=== PATIENT | male | born 1965 | race Caucasian/White ===

== ENCOUNTER 2017-12-28 09:30 | Emergency (ER) | payer OTHER ==
[2017-12-28 11:26] VITALS: BP 149/78
--- NOTE | 2017-12-28 11:34 | UC ---
FLU HPI - HPI Summary HPI Summary: 52 y/o male with no PMH, quit TOB 2004 with cough- non-productive, body aches, low grade fever 99.7, crackles in chest at night, sypmtoms worse at night. Denies SOB during day, + at night, daughters, grandchildren had flu. meds- omprazole. presents with . no N/V, throat, ear pain - History of Current Complaint Chief Complaint: UCRespiratory Stated Complaint: FLU SX Time Seen by Provider: 12/28/17 11:19 Hx Obtained From: Patient Onset/Duration: Gradual Onset, Lasting Days Severity Currently: Moderate Severity Initially: Moderate Pain Intensity: 0 Pain Scale Used: 0-10 Numeric - Allergy/Home Medications Allergies/Adverse Reactions: Allergies Allergy/AdvReac Type Severity Reaction Status Date / Time No Known Allergies Allergy Verified 05/14/15 15:57 Home Medications: Home Medications Dm/Acetaminophen/Doxylamine [Night Cold-Flu Relief Liq Gel] 1 each PO 12/28/17 [ History] PMH/Surg Hx/FS Hx/Imm Hx Previously Healthy: Yes - GERD - Surgical History Surgical History: Yes Surgery Procedure, Year, and Place: PT REPORTS SURGERY TO LEFT LOWER LEG. STATES HAPPENED WHEN CHILD-DOESN'T KNOW WHAT HAPPENED - Family History Known Family History: Positive: Hypertension, Diabetes - Social History Alcohol Use: Rare Substance Use Type: None Smoking Status (MU): Former Smoker Type: Cigarettes When Did the Patient Quit Smoking/Using Tobacco: 2004 Household Exposure Type: Cigarettes Review of Systems Constitutional: Fever, Chills, Fatigue Respiratory: Shortness Of Breath - at night, Cough Is Patient Immunocompromised?: No All Other Systems Reviewed And Are Negative: Yes Physical Exam Triage Information Reviewed: Yes Appearance: No Pain Distress, Well-Nourished, Ill-Appearing - mild Vital Signs: Initial Vital Signs Temp 98 F 12/28/17 11:21 Pulse 55 12/28/17 11:21 Resp 20 12/28/17 11:21 BP 149/78 12/28/17 11:21 Pulse Ox 97 12/28/17 11:21 Vital Signs Reviewed: Yes Eyes: Positive: Conjunctiva Clear ENT: Positive: Pharynx normal, TMs normal, Uvula midline. Negative: Pharyngeal erythema, Nasal congestion, TM bulging, TM dull, TM red, Tonsillar swelling, Tonsillar exudate, Hoarse voice, Dental tenderness, Sinus tenderness Neck exam: Normal Neck: Positive: Supple, Nontender, No Lymphadenopathy Respiratory: Positive: Chest non-tender, Normal breath sounds, No respiratory distress, No accessory muscle use, Crackles - RUL, Wheezing - RUL, Expiration - crackles RUL Cardiovascular: Positive: RRR, No Murmur, Pulses Normal Abdomen Description: Positive: Nontender, No Organomegaly, Soft, Bruit. Negative: CVA Tenderness (R), CVA Tenderness (L) Neurological Exam: Normal Psychological Exam: Normal Skin Exam: Normal - multiple tattos Flu Course/Dx - Course Course Of Treatment: rapid flu- + inf B. CXR- neg. symptoms x 5 days, no tamiflu, conservative treatments - Differential Dx/Diagnosis Differential Diagnosis/HQI/PQRI: Influenza Provider Diagnoses: influenza B Discharge - Discharge Plan Condition: Fair Disposition: HOME Prescriptions: Dextromethorphan/Benzocaine [Cepacol Sorethroat-Cough Homa] 1 each PO Q4H PRN # 40 lozenge PRN Reason: cough Patient Education Materials: Influenza (DC) Referrals: Jason Bartholomew MD [Primary Care Provider] - Additional Instructions: - INcrease fluid intake - REturn to ER with fever > 104, neck pain, headache not relieved by tylenol/ motrin - MOtrin/ tylenol/ cough medication as needed for symptoms. - Follow up with primary doctor if no improvement within 3-4 days - Avoid contact with women, chemotherapy patients, children.
--- NOTE | 2017-12-28 11:52 | RAD ---
HISTORY: Wheezing, cough COMPARISONS: None VIEWS: 4: Frontal dual-energy and lateral views of the chest. FINDINGS: CARDIOMEDIASTINAL SILHOUETTE: The cardiomediastinal silhouette is normal. RADHA: The radha are normal. PLEURA: The costophrenic angles are sharp. No pleural abnormalities are noted. LUNG PARENCHYMA: The lungs are clear. ABDOMEN: The upper abdomen is clear. There is no subphrenic gas. BONES AND SOFT TISSUES: No bone or soft tissue abnormalities are noted. OTHER: None. IMPRESSION: NO ACTIVE CARDIOPULMONARY DISEASE.
== END 2017-12-28 12:28 | disposition home or self-care (01) ==
LOC: UCCORT 09:30
DX: J10.1 Influenza due to other identified influenza virus with other respiratory manifestations (principal); Z20.828 Contact with and (suspected) exposure to other viral communicable diseases; Z87.891 Personal history of nicotine dependence
CPT/HCPCS: 71046; 87502; 99212; G0463

== ENCOUNTER 2019-02-24 10:44 | Emergency (ER) | payer OTHER ==
[2019-02-24 11:12] VITALS: BP 157/90
[2019-02-24 11:40] LABS: Influenza A Molecular POSITIVE (Negative)
--- NOTE | 2019-02-24 12:01 | UC ---
FLU HPI - HPI Summary HPI Summary: 53 y/o male presents to the urgent care c/o nonproductive cough, bodyache, and fever x2 days. cough worse last night. taking robitussin and nyquil prn w/ some cough relief. - History of Current Complaint Chief Complaint: UCRespiratory Stated Complaint: COUGH Time Seen by Provider: 02/24/19 11:50 Hx Obtained From: Patient Onset/Duration: Gradual Onset, Lasting Days - 2 days, Still Present, Worse Since - today Severity Currently: Mild Severity Initially: Mild Pain Intensity: 5 Pain Scale Used: 0-10 Numeric Associated Signs & Symptoms: Positive: Fever, Myalgia, Cough - dry, Sore Throat - mild, Nasal Congestion - clear, Headache, Diarrhea - mild - Risk Factors Influenza Risk Factors: Negative - Allergy/Home Medications Allergies/Adverse Reactions: Allergies Allergy/AdvReac Type Severity Reaction Status Date / Time No Known Allergies Allergy Verified 02/24/19 11:08 PMH/Surg Hx/FS Hx/Imm Hx Previously Healthy: Yes - Pt denies PMHX - Surgical History Surgical History: Yes Surgery Procedure, Year, and Place: PT REPORTS SURGERY TO LEFT LOWER LEG. STATES HAPPENED WHEN CHILD-DOESN'T KNOW WHAT HAPPENED - Family History Known Family History: Positive: Hypertension, Diabetes - Social History Occupation: Unemployed Lives: With Family Alcohol Use: Rare Substance Use Type: None Smoking Status (MU): Former Smoker Type: Cigarettes When Did the Patient Quit Smoking/Using Tobacco: 2004 Household Exposure Type: Cigarettes Review of Systems All Other Systems Reviewed And Are Negative: Yes Constitutional: Positive: Fever - low grade fever at home, Chills, Fatigue, Other - body ahces Skin: Positive: Negative Eyes: Positive: Negative ENT: Positive: Sore Throat - mild, Nasal Discharge - clear, Sinus Congestion, Sinus Pain/Tenderness Respiratory: Positive: Cough - dry Cardiovascular: Positive: Negative Gastrointestinal: Positive: Diarrhea - mild Genitourinary: Positive: Negative Motor: Positive: Negative Neurovascular: Positive: Negative Musculoskeletal: Positive: Myalgia Neurological: Positive: Headache Psychological: Positive: Negative Is Patient Immunocompromised?: No Physical Exam - Summary Physical Exam Summary: VITAL SIGNS: Reviewed. GENERAL: Patient is a well developed and nourished obese male who is sitting comfortable in the examining table. Patient is not in any acute respiratory distress. HEAD AND FACE: No signs of trauma. No ecchymosis, hematomas or skull depressions. No sinus tenderness. EYES: PERRLA, EOMI x 2, No injected conjunctiva, no nystagmus. No photophobia. EARS: Hearing grossly intact. Ear canals and tympanic membranes are within normal limits. Nose: edematous and erythematous nasal mucosa w/ clear nasal discharge. MOUTH: Positive no erythema, no tonsillar enlargement. Uvula in midline. NECK: Supple, trachea is midline, Positive anterior cervical lymphadenopathy, no JVD, no carotid bruit, no c-spine tenderness, neck with full ROM. No meningeal signs, no Kernig's or brudzinskis signs. CHEST: Symmetric, no tenderness at palpation LUNGS: Clear to auscultation bilaterally. No wheezing or crackles. CVS: Regular rate and rhythm, S1 and S2 present, no murmurs or gallops appreciated. ABDOMEN: Soft, non-tender. No signs of distention. No rebound no guarding, and no masses palpated. Bowel sounds are normal. EXTREMITIES: FROM in all major joints, no edema, no cyanosis or clubbing. NEURO: Alert and oriented x 3. No acute neurological deficits. Speech is normal and follows commands. SKIN: Dry and warm Triage Information Reviewed: Yes Vital Signs: Initial Vital Signs Temp 99.8 F 02/24/19 11:09 Pulse 77 02/24/19 11:09 Resp 22 02/24/19 11:09 BP 157/90 02/24/19 11:09 Pulse Ox 96 02/24/19 11:09 Flu Course/Dx - Course Course Of Treatment: Pt with URI on examination. Influenza A&B ordered: result: Influenza A positive. Pt Rx Tamiflu and advised to continue taking Tylenol PO to alleviates symptoms. Pt given Tylenol Po at the clinic to alleviate symptoms. Pt tolerated ell medication givne by nourse. Advised on hand washing and wear a mask to avoid spreading. Pt advised to rest, increase fluid intake, eat well and avoid strenuous exercise. Pt's BP is elevated today advised to decrease salt in diet, monitor BP and f/u with PCP for further management.If symptoms do not improve or worsen advised to return to the urgent care or f/u with her PCP for further evaluation and treatment. Pt understood and agreed - Differential Dx/Diagnosis Differential Diagnosis/HQI/PQRI: Bronchitis, Influenza, Pneumonia, Upper Respiratory Infection Provider Diagnosis: Influenza A, Elevated BP without diagnosis of hypertension Discharge - Sign-Out/Discharge Documenting (check all that apply): Patient Departure - d/C home All imaging exams completed and their final reports reviewed: No Studies - Discharge Plan Condition: Stable Disposition: HOME Prescriptions: Oseltamivir CAP* [Tamiflu CAP*] 75 mg PO BID #10 cap Patient Education Materials: Influenza (ED) Referrals: Jason Bartholomew MD [Primary Care Provider] - 3 Days Additional Instructions: 1- Please take the full course of the antiviral to avoid resistance. Encourage hand washing and wear a mask to avoid spreading. 2-Please continue taking Tylenol PO q6-8hrs prn as instructed after meals to alleviate fever, and sore throat. Increase hydration, eat well, rest and avoid strenuous exercise 3-If symptoms do not improve or worsen please return to the urgent care or f/u with your PCP in 3 days for further evaluation and treatment. - Billing Disposition and Condition Condition: STABLE Disposition: Home
[2019-02-24] MEDS ORDERED: Acetaminophen TAB* 325 MG PO ONE (12:09)
== END 2019-02-24 12:16 | disposition home or self-care (01) ==
LOC: UCEAST 10:44
DX: J10.1 Influenza due to other identified influenza virus with other respiratory manifestations (principal); R03.0 Elevated blood-pressure reading, without diagnosis of hypertension; Z87.891 Personal history of nicotine dependence
CPT/HCPCS: 99212; A9270-GY; G0463

== ENCOUNTER 2019-08-28 09:52 | Emergency (ER) | payer OTHER ==
--- OUTSIDE RECORDS SUMMARY | 2019-08-28 09:58 | XMS REPORT | Summary of Care ---
:1965 Author Organization [facility] Address [address] [facility] [place] [address] Care Team Providers Name Role Phone None, [place] Primary Care Provider Unavailable Reason for Referral Sleep Study (Routine) Status Reason Specialty Diagnoses / Referred By Referred To Procedures Contact Contact Pending Review Sleep Disorder Diagnoses TORI (obstructive sleep apnea) Qian [facility] MD Grazyna [address] [facility] [place] [phone] Phone: Scheduling Instructions This order is to be used to begin the process for the patient to have a Sleep Study performed. If you wish to have the patient evaluated by a Sleep Specialist, please place a "Refer Sleep Medicine Specialist" order. If you have questions, please contact our Patient Coordinators: [place]: [place]: Mike: ([phone] or Durable Medical Equipment (Routine) Status Reason Specialty Diagnoses / Referred By Referred To Procedures Contact Contact Pending Review Diagnoses Venous stasis Grazyna Laughlin MD [address] [facility] [address] [address] Reason for Visit Reason Comments Establish Care physical, Dr Knott Encounter Details Date Type Department Care Team Description 07/12/2019 Office Visit [facility] Kodak Laughlin adult exam (Primary Dx); Practice MD Grazyna Venous stasis; [address] TORI (obstructive sleep apnea); [place] [address] [place] [address] Hearing loss of left ear, unspecified hearing loss type [phone] Allergies No Known Allergiesdocumented as of this encounter (statuses as of 07/12/2019) Medications No known medicationsdocumented as of this encounter (statuses as of 07/12/2019) Active Problems Problem Noted Date Hearing loss Overview: L ear. Uses hearing aid documented as of this encounter (statuses as of 07/12/2019) Social History Tobacco Use Types Packs/Day Years Used Date Former Smoker Smokeless Tobacco: Never Used Alcohol Use Drinks/Week oz/Week Comments Yes Alcohol Habits Answer Date Recorded How often do you have a drink containing alcohol? Monthly or less 07/12/2019 How many drinks containing alcohol do you have on a Not asked typical day when you are drinking? How often do you have six or more drinks on one Not asked occasion? Sex Assigned at Date Recorded Not on file Job Start Date Occupation Industry Not on file Not on file Not on file Travel History Travel Start Travel End No recent travel history available. documented as of this encounter Last Filed Vital Signs Vital Sign Reading Time Taken Comments Blood Pressure 150/80 07/12/2019 2:35 PM EDT Pulse 82 07/12/2019 2:35 PM EDT Temperature 38.1 07/12/2019 2:35 PM C (100.6 EDT F) Respiratory Rate - - Oxygen Saturation 96% 07/12/2019 2:35 PM EDT Inhaled Oxygen Concentration - - Weight 155.6 kg (343 lb) 07/12/2019 2:35 PM EDT Height 167.6 cm (5' 6") 07/12/2019 2:35 PM EDT Body Mass Index 55.36 07/12/2019 2:35 PM EDT documented in this encounter Patient Instructions Patient InstructionsGrazyna Laughlin MD - 07/12/2019 2:40 PM EDT1. Schedule fasting blood tests 2. Schedule sleep study 3. Wear compression stockings when active documented in this encounter Progress Notes Grazyna Laughlin MD - 07/12/2019 2:40 PM EDT Patient: Tobi Davis Date of Service: 07/12/2019 Subjective: Tobi Davis is a 54-y.o. male who presents for Chief Complaint Patient presents with [facility] physical, Dr Knott Patient does have episodes of loud snoring, witnessed apnea Noticed some tiredness during the day Past Medical History: Diagnosis Date Hearing loss L ear. Uses hearing aid Morbid obesity (HCC) No current outpatient medications on file as of 07/12/2019. No current facility-administered medications on file as of 07/12/2019. No Known Allergies Review of Systems: All remaining review of systems was negative. Objective: BP 150/80 (BP Location: Left arm, Patient Position: Sitting) Pulse 82 Temp 100.6 F (38.1 C) Ht 5' 6" (1.676 m) Wt 343 lb (155.6 kg) SpO2 96% BMI 55.36 kg/m2 GENERAL: alert, no distress HEAD: normocephalic, without obvious abnormality EYES: conjunctivae/corneas clear. Pupils equal, round, reactive to light. Equal ocular movements intact. EARS: right ear normal tympanic membrane and external ear canal, left ear - TM white, retracted NOSE: Nares normal. Septum midline. Mucosa normal. No drainage or sinus tenderness. THROAT: lips, mucosa, and tongue normal: teeth and gums normal NECK: supple, symmetrical, trachea midline and no adenopathy BACK: negative LUNGS: clear to auscultation bilaterally HEART: regular rate and rhythm, S1, S2 normal, no murmur, click, rub or gallop ABDOMEN: soft, non-tender. Bowel sounds normal. No organomegaly, umbilical hernia MALE GENITALIA: normal circumcised penis, normal testes palpated bilaterally and no hernia detected EXTREMITIES: varicose veins noted, venous stasis PULSES: 2+ and symmetric SKIN: Skin color, texture, turgor normal. No rashes or suspicious lesions. LYMPH NODES: cervical, supraclavicular, and axillary nodes normal. NEUROLOGIC: Grossly normal ICD-9-CM ICD-10-CM 1. Well adult exam Never had colonoscopy Will schedule after Sleep apnea concerns are clarified V70.0 Z00.00 COMPREHENSIVE METABOLIC PANEL LIPID PROFILE 2. Venous stasis 459.81 I87.8 DME COMPRESSION STOCKINGS (AMB) 3. TORI (obstructive sleep apnea) 327.23 G47.33 REFER TO SLEEP STUDY LAB 4. Hearing loss of left ear, unspecified hearing loss type 389.9 H91.92 Patient Instructions 1. Schedule fasting blood tests 2. Schedule sleep study 3. Wear compression stockings when active Author: Grazyna Laughlin MD documented in this encounter Plan of Treatment Date Type Specialty Care Team Description 07/13/2019 Lab Internal Medicine Name Type Priority Associated Diagnoses Order Schedule COMPREHENSIVE METABOLIC Lab Routine Well adult exam Expected: 07/12/2019 PANEL (Approximate), Expires: 07/12/2020 LIPID PROFILE Lab Routine Well adult exam Expected: 07/12/2019 (Approximate), Expires: 07/12/2020 Name Type Priority Associated Diagnoses Order Schedule DME COMPRESSION Referral Routine Venous stasis Ordered: 07/12/2019 STOCKINGS (AMB) REFER TO SLEEP STUDY LAB Referral Routine TORI (obstructive sleep Ordered: 07/12/2019 apnea) Health Maintenance Due Date Last Done Comments DIABETES SCREENING 1982 LIPID DISORDER SCREENING 1982 COLONOSCOPY SCREENING 2014 ZOSTER IMMUNIZATION SERIES (1 of 2014 2) DEPRESSION SCREENING 07/12/2020 07/12/2019 HEPATITIS C SCREENING 07/12/2020 Postponed from 2004 (Patient refused) HIV SCREENING 07/12/2020 Postponed from 1979 (Patient refused) INFLUENZA VACCINE (#1) 2020 Postponed from 07/16/2019 (Patient refused) HPV IMMUNIZATION SERIES Aged Out No longer eligible based on patient's age to complete this topic MENINGOCOCCAL VACCINE IMM Aged Out No longer eligible based on patient's age to complete this topic PNEUMOCOCCAL 0-64 YRS Aged Out No longer eligible based on patient's age to complete this topic documented as of this encounter Results Not on filedocumented in this encounter Visit Diagnoses Diagnosis Well adult exam - Primary Routine general medical examination at a health care facility Venous stasis Unspecified venous (peripheral) insufficiency TORI (obstructive sleep apnea) Obstructive sleep apnea (adult) (pediatric) Hearing loss of left ear, unspecified hearing loss type documented in this encounter Insurance Payer Benefit Plan / Subscriber ID Effective Dates Phone Address Type Group KEVYN ROMANO [facility] xxxxxxxxxxx 2018-Present Kevyn documented as of this encounter
[2019-08-28 10:11] VITALS: BP 144/77
[2019-08-28] MEDS ORDERED: Ibuprofen TAB* 600 MG PO ONE (10:27)
--- NOTE | 2019-08-28 10:37 | UC ---
Shoulder Pain HPI - HPI Summary HPI Summary: 54-year-old male comes in with a chief complaint of left shoulder pain. About a week ago he was doing some physical activities that strained his arms. About 3 days ago he started with left shoulder pain. He also has developed a erythematous rash on the left hand which is itchy and somewhat painful. Sometimes there is pain in the left arm also. Denies any neck pain or headache or fevers or chills feels well otherwise. Shoulder is worse with range of motion. Did take some aspirin which did not help much with the pain. Pain does be worse at night. - History of Current Complaint Chief Complaint: UCUpperExtremity Stated Complaint: SHOULDER INJURY Time Seen by Provider: 08/28/19 10:19 Pain Intensity: 8 - Allergies/Home Medications Allergies/Adverse Reactions: Allergies Allergy/AdvReac Type Severity Reaction Status Date / Time No Known Allergies Allergy Verified 08/28/19 10:10 Home Medications: Home Medications Aspirin/Caffeine [Saida Back & Body Pain Ex] 1 tab PO 08/28/19 [History] PMH/Surg Hx/FS Hx/Imm Hx Previously Healthy: Yes - Surgical History Surgical History: Yes Surgery Procedure, Year, and Place: PT REPORTS SURGERY TO LEFT LOWER LEG. STATES HAPPENED WHEN CHILD-DOESN'T KNOW WHAT HAPPENED - Family History Known Family History: Positive: Hypertension, Diabetes - Social History Alcohol Use: Rare Substance Use Type: None Smoking Status (MU): Former Smoker Type: Cigarettes When Did the Patient Quit Smoking/Using Tobacco: 2004 Household Exposure Type: Cigarettes Review of Systems All Other Systems Reviewed And Are Negative: Yes Constitutional: Positive: Negative Skin: Positive: Other - see hpi Eyes: Positive: Negative ENT: Positive: Negative Respiratory: Positive: Negative Cardiovascular: Positive: Negative Gastrointestinal: Positive: Negative Motor: Positive: Negative Neurovascular: Positive: Negative Musculoskeletal: Positive: Other: - see hpi Neurological: Positive: Negative Psychological: Positive: Negative Is Patient Immunocompromised?: No Physical Exam Triage Information Reviewed: Yes Appearance: Well-Appearing, No Pain Distress, Well-Nourished Vital Signs: Initial Vital Signs Temp 98.4 F 08/28/19 10:06 Pulse 46 08/28/19 10:06 Resp 20 08/28/19 10:06 BP 144/77 08/28/19 10:06 Pulse Ox 95 08/28/19 10:06 Vital Signs Reviewed: Yes Eye Exam: Normal Eyes: Positive: Conjunctiva Clear Neck: Positive: Supple, Nontender Respiratory: Positive: Lungs clear, Normal breath sounds, No respiratory distress Cardiovascular: Positive: RRR Musculoskeletal: Positive: Other: - Patient is tender to palpation in the left shoulder joint. Normal radial pulses. Fingers wrist arms elbows and shoulders have full strength and full range of motion and they're symmetric. Neurological: Positive: Alert, Muscle Tone Normal Psychological: Positive: Age Appropriate Behavior Skin: Positive: Other - Of the left hand there is an erythematous base slightly raised with papules rash on the second finger and at the base of the left thumb. Shoulder Course/Dx - Course Course Of Treatment: Computer Operations Manager: Poli Jonas Daniel ([id number]) Human Resources Project Manager: RICH ( RICH) Report Date: 08/28/2019 10:26:00 Report Status: Final ====== Start of Report Content Patient Name: ESSENCE DIANE Medical Record#: [id number] Ordering Physician: Magdi Alvarez MD Acct.#: [id number] : Age: 54 Sex: M Location: [facility] Exam Date: 08/28/19 1026 ADM Status: REG ER Order Information: SHOULDER LEFT 2+ VWS Accession Number : [id number] CPT: 48779 HISTORY: pain s/p injury . COMPARISONS: None relevant available at the time of dictation. VIEWS: 4, Frontal internal rotation, external rotation, outlet, and axillary views of the left shoulder FINDINGS: BONE DENSITY: Normal. BONES: There is no displaced fracture. JOINTS: There is osteoarthritis of the left shoulder most pronounced at the articulation of the acromion and greater tuberosity of the left humerus. ALIGNMENT: There is no dislocation. SOFT TISSUES: Unremarkable. OTHER FINDINGS: None. IMPRESSION: OSTEOARTHRITIS. NO ACUTE OSSEOUS INJURY. IF SYMPTOMS PERSIST, RECOMMEND REPEAT IMAGING. < Electronically signed by Poli Jonas MD in OV> 08/28/19 1038 Dictated By : Poli Jonas MD Dictated Date/Time: 08/28/19 1037 Transcribed Date/Time : 08/28/19 1037 Copy to: CC:Jason Bartholomew MD; Magdi Alvarez MD Imaging - [facility] Imaging - [facility] Imaging - [facility] [address] [facility] [address] [address] ph ([phone]) ph ([phone]) ph ([phone]) ===== End of Report Content I discussed the x-rays with the patient and his . Given the rash on the hand and the distribution of pain through the arm and the shoulder believe all of the pain is secondary to shingles. Plan right now is to treat with valacyclovir 1 g by mouth 3 times a day for 7 days. Follow-up his primary care doctor get reevaluated sooner if worse or any questions or concerns. - Differential Dx/Diagnosis Provider Diagnosis: Left shoulder pain, Shingles Discharge ED - Sign-Out/Discharge Documenting (check all that apply): Patient Departure All imaging exams completed and their final reports reviewed: Yes - Discharge Plan Condition: Stable Disposition: HOME Prescriptions: Valacyclovir HCl [Valacyclovir] 1 gm PO TID #21 tab Patient Education Materials: Shingles (ED), Shoulder Pain (ED) Referrals: Jason Bartholomew MD [Primary Care Provider] - Additional Instructions: FOLLOW UP WITH YOUR DOCTOR IF NOT COMPLETELY IMPROVED. GET RECHECKED SOONER IF YOUR CONDITION WORSENS OR ANY QUESTIONS OR CONCERNS. - Billing Disposition and Condition Condition: STABLE Disposition: Home
== END 2019-08-28 11:24 | disposition home or self-care (01) ==
LOC: UCEAST 09:52
DX: M25.512 Pain in left shoulder (principal); B02.9 Zoster without complications; M19.012 Primary osteoarthritis, left shoulder; Z79.82 Long term (current) use of aspirin; Z87.891 Personal history of nicotine dependence
CPT/HCPCS: 99212; A9270-GY; G0463

== ENCOUNTER 2020-01-07 12:28 | Emergency (ER) | payer OTHER ==
[2020-01-07 13:13] VITALS: BP 173/90
--- NOTE | 2020-01-07 13:36 | UC ---
UC General HPI - HPI Summary HPI Summary: pain in right side of ribs after lifting up a heavy bag of shanika litter 2 days ago---no sob eating as usual - History of Current Complaint Chief Complaint: UCGeneralIllness Stated Complaint: SIDE PAIN Time Seen by Provider: 01/07/20 13:29 Hx Obtained From: Patient Onset/Duration: Sudden Onset, Lasting Days - 2 Timing: Constant Pain Intensity: 8 Pain Location at: right side of ribs Pain Radiates to: n Associated Signs & Symptoms: Positive: Other - movement and rolling over in bed - Allergy/Home Medications Allergies/Adverse Reactions: Allergies Allergy/AdvReac Type Severity Reaction Status Date / Time No Known Allergies Allergy Verified 01/07/20 13:07 Home Medications: Home Medications Naproxen Sodium [Naproxen Sodium 500 MG TAB] 500 mg PO BID #10 tab 01/07/20 [Rx] PMH/Surg Hx/FS Hx/Imm Hx Previously Healthy: Yes - Surgical History Surgical History: Yes Surgery Procedure, Year, and Place: PT REPORTS SURGERY TO LEFT LOWER LEG as a child. - Family History Known Family History: Positive: Hypertension, Diabetes - Social History Occupation: Disabled Lives: With Family Alcohol Use: Rare Substance Use Type: Marijuana Substance Use Comment - Amount & Last Used: ocassional Smoking Status (MU): Former Smoker Type: Cigarettes When Did the Patient Quit Smoking/Using Tobacco: 2004 Household Exposure Type: Cigarettes Review of Systems All Other Systems Reviewed And Are Negative: Yes Constitutional: Positive: Negative Skin: Positive: Negative Eyes: Positive: Negative ENT: Positive: Negative Respiratory: Positive: Negative Cardiovascular: Positive: Negative Gastrointestinal: Positive: Negative Genitourinary: Positive: Negative Motor: Positive: Negative Neurovascular: Positive: Negative Musculoskeletal: Positive: Arthralgia - right anterior ribs Neurological/Mental Status: Positive: Negative Psychological: Positive: Negative Is Patient Immunocompromised?: No Physical Exam Triage Information Reviewed: Yes Appearance: Well-Appearing, No Pain Distress, Obese Vital Signs: Initial Vital Signs Temp 98.3 F 01/07/20 13:07 Pulse 50 01/07/20 13:07 Resp 16 01/07/20 13:07 BP 173/90 01/07/20 13:07 Pulse Ox 97 01/07/20 13:07 Vital Signs Reviewed: Yes Eye Exam: Normal Eyes: Positive: Conjunctiva Clear ENT Exam: Normal ENT: Positive: Normal ENT inspection, Hearing grossly normal. Negative: Trismus , Muffled voice, Hoarse voice Dental Exam: Normal Neck exam: Normal Neck: Positive: Supple, Nontender Respiratory Exam: Normal Respiratory: Positive: Chest non-tender, Lungs clear, Normal breath sounds, No respiratory distress, No accessory muscle use Cardiovascular Exam: Normal Cardiovascular: Positive: RRR, No Murmur, Pulses Normal, Brisk Capillary Refill Abdominal Exam: Normal Abdomen Description: Positive: Nontender Musculoskeletal Exam: Normal Musculoskeletal: Positive: Strength Intact, ROM Intact, No Edema Neurological Exam: Normal Neurological: Positive: Alert, Muscle Tone Normal Psychological Exam: Normal Skin Exam: Normal Diagnostics - Radiology No standard instances Radiology Interpretation Completed By: Radiologist - no evidence of acute rib or lung injury Course/Dx - Course Course Of Treatment: heat/ice to ribs for comfort naproxen, cough and deep breath follow with pcp prn - Diagnoses Provider Diagnosis: Rib pain on right side Discharge ED - Sign-Out/Discharge Documenting (check all that apply): Patient Departure All imaging exams completed and their final reports reviewed: Yes - Discharge Plan Condition: Stable Disposition: HOME Prescriptions: Naproxen Sodium [Naproxen Sodium 500 MG TAB] 500 mg PO BID #10 tab Patient Education Materials: Musculoskeletal Pain (ED), Hypertension (ED) Referrals: [facility] [Outside] No Primary Care Phys,NOPCP [Primary Care Provider] - - Billing Disposition and Condition Condition: STABLE Disposition: Home
[2020-01-07] MEDS ORDERED: Ketorolac *IM* INJ* 60 MG/2 ML VIAL IM ONE (14:24)
== END 2020-01-07 14:38 | disposition home or self-care (01) ==
LOC: UCEAST 12:28
DX: R07.81 Pleurodynia (principal); X50.0XXA Overexertion from strenuous movement or load, initial encounter; Y92.9 Unspecified place or not applicable; Z87.891 Personal history of nicotine dependence
CPT/HCPCS: 99212; G0463